=== PATIENT | female | born 1970 | race Caucasian/White ===

== ENCOUNTER 2016-06-28 13:12 | Outpatient (CLI) ==
--- NOTE | 2016-06-28 14:11 | DI ---
EXAM: Third digit of the right hand three views HISTORY: Middle finger pain. FINDINGS: Bone and joint structures appear normal. There is no displaced fracture or joint disloca tion seen. General bone density and soft tissues are within normal limits. IMPRESSION: Findings within normal limits.
== END 2016-06-28 13:13 | disposition home or self-care (01) ==
LOC: RAD 13:12
PROVIDERS: ATTEND Family Medicine
DX: M79.646 Pain in unspecified finger(s) (principal)

== ENCOUNTER 2018-08-05 10:18 | Outpatient (CLI) ==
--- NOTE | 2018-08-05 11:36 | DEXA ---
EXAM: Bone densitometry. History: Long-term steroid use Findings: Evaluation of the lumbar spine reveals a total bone mineral density of 1.461 grams per centimeter squ ared with T-score of 2.3. Evaluation of the left hip reveals a total bone mineral density of 1.187 grams per centimeter squared with T-score of 1.4. Evaluation of the right hip reveals a total bone mineral density of 1.218 grams per centimeter square d with T-score of 1.7. FRAX: 10-year probability for major osteoporotic fracture is 4.1% and 0.1% hip fracture. Impression: 1. Normal bone mineral density of the lumbar spine. 2. Normal bone mineral density of the bilateral hips
--- NOTE | 2018-08-05 11:45 | MAMMO ---
EXAM: Bilateral digital screening mammogram (2-D and 3-D) History: Screening Comparison: Bilateral mammogram 01/17/2016 Findings: MLO and CC views of bilateral breasts demonstrate scattered fibroglandular breast parenchy ma. CAD was reviewed by the radiologist. Tomosynthesis was performed. There are no dominant masses , no suspicious microcalcifications and no architectural distortions Impression: Stable negative mammogram. Recommend followup routine screening mammography in 1 year. BIRADS 1, negative
== END 2018-08-05 10:19 | disposition home or self-care (01) ==
LOC: RAD 10:18
PROVIDERS: ATTEND Family Medicine
DX: Z12.31 Encounter for screening mammogram for malignant neoplasm of breast (principal); Z79.52 Long term (current) use of systemic steroids; Z91.89 Other specified personal risk factors, not elsewhere classified